=== PATIENT | female | born 1940 | race Caucasian/White ===

== ENCOUNTER 2017-05-28 13:29 | Inpatient (IN) | payer MEDICARE, MEDICAID ==
[~2017-05-28] VITALS: Ht 154.9 cm; Wt 71.7 kg
[2017-05-28 16:00] VITALS: BP 148/57
[2017-05-28] MEDS ORDERED: POLYETHYLENE GL17 GM ORAL (17:01)
[2017-05-28] MEDS ORDERED: ULORIC80 MG ORAL (17:01)
[2017-05-28] MEDS ORDERED: VASCEPA1 GM PO (17:01)
[2017-05-28] MEDS ORDERED: FUROSEMIDE40 MG ORAL (17:01)
[2017-05-28] MEDS ORDERED: CRESTOR10 M2 ORAL (17:01)
[2017-05-28] MEDS ORDERED: FOLIC ACID-VIT1 EAC1 PO (17:01)
[2017-05-28] MEDS ORDERED: PREDNISONE10 MG ORAL (17:01)
[2017-05-28] MEDS ORDERED: LEVOTHYROXINE50 MCG ORAL (17:01)
[2017-05-28] MEDS ORDERED: JANUVIA25 MG ORAL (17:01)
[2017-05-28] MEDS ORDERED: VITAMIN D250000 UNI1 ORAL (17:01)
[2017-05-28] MEDS ORDERED: BYSTOLIC2.5 MG ORAL (17:01)
[2017-05-28] MEDS ORDERED: CATAPRES0.1 MG ORAL (17:01)
[2017-05-28] MEDS ORDERED: RENA-VITE TABL0.8 M1 PO (17:01)
[2017-05-28] MEDS ORDERED: NEXIUM40 MG ORAL (17:01)
[2017-05-28] MEDS ORDERED: WARFARIN SODIUM1 MG ORAL (17:01)
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
[2017-05-28] MEDS ORDERED: Miralax 17gm pkt ORAL PRN (17:15)
[2017-05-28] MEDS ORDERED: Bystolic 2.5mg Tab ORAL PRN (17:15)
[2017-05-28] MEDS ORDERED: LORazepam Inj 2mg/ml 1ml IV PRN (17:15)
[2017-05-28] MEDS ORDERED: Zolpidem 5mg tab ORAL PRN (17:15)
[2017-05-28] MEDS ORDERED: Morphine Sulfate 2mg/ml Inj IVP PRN (17:15)
[2017-05-28] MEDS ORDERED: Mylanta II UD 30ml ORAL PRN (17:15)
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
--- NOTE | 2017-05-28 19:11 | History & Physical ---
History and Physical History & Physicial Dictated for Int Med-Dr Harris no. [id number]. THU STARR May 28, 2017 19:11
[2017-05-28 19:19] VITALS: BP 123/49
[2017-05-28] MEDS: Heparin 5000 units/ml inj SUBQ SCH (21:00)
[2017-05-28] MEDS: NovoLOG Insulin Flexpen SUBQ SCH (22:10)
[2017-05-28 23:08] VITALS: BP 116/62
[2017-05-29] VITALS (7 sets, daily range): BP systolic 128–145; BP diastolic 54–62
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
[2017-05-29] MEDS: NovoLOG Insulin Flexpen SUBQ SCH ×4 (05:56→21:00)
[2017-05-29] MEDS: Furosemide 40mg tab ORAL SCH (08:29)
[2017-05-29] MEDS: Heparin 5000 units/ml inj SUBQ SCH (08:30)
[2017-05-29 08:36] LABS: BASOPHILS % (AUTO) 0.8 % (0.0-2.0); EOSINOPHILS % (AUTO) 3.3 % (0.0-3.0); HEMATOCRIT 35.8 % (37.0-47.0); HEMOGLOBIN 11.1 G/DL (12.0-16.0); LYMPHOCYTES % (AUTO) 36.7 % (20.0-45.0); MEAN CORPUSCULAR VOLUME 97 FL (80-99); MONOCYTES % (AUTO) 5.5 % (1.0-10.0); NEUTROPHILS % (AUTO) 53.8 % (45.0-75.0); PLATELET COUNT 245 K/UL (150-450); RED BLOOD COUNT 3.71 M/UL (4.20-5.40); RED CELL DISTRIBUTION WIDTH 13.5 % (11.6-14.8); WHITE BLOOD COUNT 8.6 K/UL (4.8-10.8)
[2017-05-29 08:52] LABS: INR 2.1 (0.9-1.1)
[2017-05-29] MEDS: sitaGLIPtin 25mg tab ORAL SCH (09:01)
[2017-05-29 09:44] LABS: ALANINE AMINOTRANSFERASE 24 U/L (12-78); ALBUMIN 3.1 G/DL (3.4-5.0); ALKALINE PHOSPHATASE 60 U/L (46-116); ANION GAP 11 mmol/L (5-15); ASPARTATE AMINO TRANSFERASE 21 U/L (15-37); BILIRUBIN,TOTAL 0.4 MG/DL (0.2-1.0); BLOOD UREA NITROGEN 51 mg/dL (7-18); CALCIUM 8.7 MG/DL (8.5-10.1); CARBON DIOXIDE 27 MMOL/L (21-32); CHLORIDE 106 MMOL/L (98-107); CHOLESTEROL 212 MG/DL (< 200); CREATININE 2.4 MG/DL (0.55-1.30); HDL CHOLESTEROL 31 MG/DL (40-60); POTASSIUM 3.5 MMOL/L (3.5-5.1); SODIUM 144 MMOL/L (136-145); TRIGLYCERIDES 370 MG/DL (30-150)
[2017-05-29 10:49] LABS: CREATINE KINASE 43 U/L (26-308)
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
[2017-05-29 13:17] LABS: PHOSPHORUS 3.5 MG/DL (2.5-4.9)
[2017-05-29] MEDS ORDERED: Lidocaine HCL 2% 2ML INJ ONE (14:00)
[2017-05-29] MEDS: Cosopt Opth Soln 10 mL Btl LEFT EYE SCH (18:25)
[2017-05-29] MEDS: Tobramycin Op Soln 0.3% 5ml BOTH EYES SCH ×2 (18:26→23:53)
--- NOTE | 2017-05-29 18:41 | Pulmonology Progress Note ---
Assessment/Plan Problems: (1) Ophthalmological disorder (2) CHF (congestive heart failure) (3) HTN (hypertension) (4) ESRD (end stage renal disease) on dialysis (5) Contusion, eye, left Assessment/Plan awaiting ophtalmology symptomatic treatment hd by nephrolgoy check electrolyte Subjective ROS Limited/Unobtainable: No Allergies: Coded Allergies: LEVOFLOXACIN (Verified Allergy, Unknown, 05/28/17) Objective Last 24 Hour Vital Signs Date Time Temp Pulse Resp B/P (MAP) Pulse Ox O2 Delivery O2 Flow Rate FiO2 05/29/17 16:15 Room Air 05/29/17 16:06 97.2 64 20 128/62 98 05/29/17 16:05 97.2 64 20 128/62 96 Room Air 05/29/17 16:00 97.2 64 20 128/62 Room Air 05/29/17 12:00 97.0 63 20 133/54 Room Air 05/29/17 12:00 98.0 63 18 133/54 97 Room Air 05/29/17 12:00 Room Air 05/29/17 08:00 97.6 65 18 145/62 97 Room Air 05/29/17 03:12 96.5 62 20 136/58 96 Room Air 05/29/17 02:27 96.5 05/28/17 23:08 96.6 60 20 116/62 95 Room Air 05/28/17 19:19 97.7 65 20 123/49 95 Room Air Intake and Output 05/28/17 05/29/17 19:00 07:00 # Voids 2 # Bowel Movements 1 General Appearance: WD/WN HEENT: normocephalic, other - left orbital hematoma Respiratory/Chest: chest wall non-tender, lungs clear Cardiovascular: normal peripheral pulses, normal rate Abdomen: normal bowel sounds, no organomegaly Extremities: no cyanosis Skin: no lesions Neurologic/Psychiatric: no motor/sensory deficits Laboratory Tests 05/28/17 19:18: C-Reactive Protein, Quantitative 2.5H 05/29/17 05:30: White Blood Count 8.6, Red Blood Count 3.71L, Hemoglobin 11.1L, Hematocrit 35.8L , Mean Corpuscular Volume 97, Mean Corpuscular Hemoglobin 30.0, Mean Corpuscular Hemoglobin Concent 31.1L, Red Cell Distribution Width 13.5, Platelet Count 245, Mean Platelet Volume 7.5, Neutrophils (%) (Auto) 53.8, Lymphocytes (%) (Auto) 36.7, Monocytes (%) (Auto) 5.5, Eosinophils (%) (Auto) 3.3H, Basophils (%) (Auto) 0.8, Prothrombin Time 22.0H, Prothromb Time International Ratio 2.1H, Activated Partial Thromboplast Time 42H, Sodium Level 144, Potassium Level 3.5, Chloride Level 106, Carbon Dioxide Level 27, Anion Gap 11, Blood Urea Nitrogen 51H, Creatinine 2.4H, Estimat Glomerular Filtration Rate , Glucose Level 81, Hemoglobin A1c 6.0, Uric Acid 4.2, Calcium Level 8.7, Phosphorus Level 3.5, Magnesium Level 2.5H, Total Bilirubin 0.4, Aspartate Amino Transf (AST/SGOT) 21, Alanine Aminotransferase (ALT/SGPT) 24, Alkaline Phosphatase 60, Total Creatine Kinase 43, Troponin I 0.001, Pro-B-Type Natriuretic Peptide 416H, Total Protein 6.2L, Albumin 3.1L, Globulin 3.1, Albumin/Globulin Ratio 1.0, Triglycerides Level 370H, Cholesterol Level 212H, LDL Cholesterol 107H, HDL Cholesterol 31L, Cholesterol/HDL Ratio 6.8H, Thyroid Stimulating Hormone (TSH) 2.506 Current Medications Medications (Trade) Dose Ordered Sig/Betina Route PRN Reason Start Time Stop Time Status Last Admin Dose Admin Acetaminophen (Tylenol) 650 mg Q4H PRN ORAL fever 05/28/17 17:15 06/27/17 17:14 05/28/17 18:07 Atorvastatin Calcium (Lipitor) 20 mg BEDTIME ORAL 05/29/17 21:00 06/28/17 20:59 Clonidine HCl (Catapres Tab) 0.1 mg Q4HR PRN ORAL SBP > 160 05/28/17 17:15 06/27/17 17:14 Dextrose (Dextrose 50%) STAT PRN IV Hypoglycemia 05/28/17 17:15 06/27/17 17:14 Dorzolamide/ Timolol (Cosopt) 1 drop TWICE A DAY LEFT EYE 05/29/17 18:00 06/28/17 17:59 05/29/17 18:25 Escitalopram Oxalate (Lexapro) 10 mg DAILY ORAL 05/30/17 09:00 06/29/17 08:59 Furosemide (Lasix) 40 mg DAILY ORAL 05/29/17 09:00 06/28/17 08:59 05/29/17 08:29 Insulin Aspart (NovoLOG) BEFORE MEALS AND HS SUBQ 05/28/17 21:00 06/27/17 20:59 05/28/17 22:10 Levothyroxine Sodium (Synthroid) 50 mcg DAILY ORAL 05/29/17 09:00 06/28/17 08:59 05/29/17 08:25 Lorazepam (Ativan 2mg/ml 1ml) 0.5 mg Q4H PRN IV For Anxiety 05/28/17 17:15 06/04/17 17:14 Morphine Sulfate (Morphine Sulfate) 1 mg EVERY 4 HOURS PRN IVP For Pain 05/28/17 17:15 06/04/17 17:14 05/29/17 01:57 Nebivolol (Bystolic) 2.5 mg QHS PRN ORAL HR >100 05/28/17 17:15 06/27/17 17:14 Ondansetron HCl (Zofran) 4 mg Q6H PRN IVP Nausea & Vomiting 05/28/17 17:15 06/27/17 17:14 Pantoprazole (Protonix) 40 mg DAILY ORAL 05/29/17 09:00 06/28/17 08:59 05/29/17 08:26 Polyethylene Glycol (Miralax) 17 gm HSPRN PRN ORAL Constipation 05/28/17 17:15 06/27/17 17:14 Sitagliptin Phosphate (Januvia) 25 mg DAILY ORAL 05/29/17 09:00 06/28/17 08:59 05/29/17 09:01 Tobramycin Sulfate (Tobramycin Opth Soln) 1 drop Q6HR BOTH EYES 05/29/17 18:00 06/05/17 17:59 05/29/17 18:26 Zolpidem Tartrate (Ambien) 5 mg HSPRN PRN ORAL Insomnia 05/28/17 17:15 06/04/17 17:14 MELVA MARTINEZ May 29, 2017 18:41
[2017-05-29] MEDS ORDERED: Atorvastatin 20mg tab ORAL SCH (21:00)
--- NOTE | 2017-05-29 21:01 | Consultation ---
History of Present Illness General Date patient seen: May 29, 2017 Present Illness HPI 76-year-old white female, who presents with chief complaint of left eye injury. the pt also have hx of depressed mood, anhedonia, decrease energy, worthlessness , anxiety. no manic/psychotic sxs Allergies: Coded Allergies: LEVOFLOXACIN (Verified Allergy, Unknown, 05/28/17) Medication History Scheduled Cyanocobalamin/Fa/Pyridoxine (Folic Acid-Vit B6-Vit B12 Tab), 1 EACH PO DAILY, ( Reported) Ergocalciferol (Vitamin D2)* (Vitamin D*), 50,000 UNIT ORAL ONCE A WEEK, ( Reported) Esomeprazole Magnesium (Nexium), 40 MG ORAL DAILY, (Reported) Febuxostat (Uloric), 80 MG ORAL DAILY, (Reported) Folic Acid/Vitamin B Comp W-C (Annel-Rachele Tablet), 0.8 MG PO DAILY, (Reported) Furosemide* (Lasix*), 40 MG ORAL DAILY, (Reported) Icosapent Ethyl (Vascepa), 2 GM PO BID, (Reported) Levothyroxine Sodium* (Levothyroxine Sodium*), 50 MCG ORAL DAILY, (Reported) Prednisone* (Prednisone*), 5 MG ORAL DAILY, (Reported) Rosuvastatin Calcium* (Crestor*), 10 MG ORAL DAILY, (Reported) Sitagliptin* (Januvia*), 25 MG ORAL DAILY, (Reported) Warfarin Sod* (Warfarin Sod*), 1 MG ORAL DAILY, (Reported) Scheduled PRN Clonidine Hcl* (Catapres*), 0.1 MG ORAL Q4HR PRN for SBP > 160, (Reported) Nebivolol Hcl* (Bystolic*), 2.5 MG ORAL QHS PRN for HR >100, (Reported) Polyethylene Glycol 3350* (Polyethylene Glycol 3350*), 17 GM ORAL DAILY PRN for constipation(if no BM in 2-3) , (Reported) Patient History Limited by: medical condition History Provided By: Patient, PMD Healthcare decision maker Resuscitation status Advanced Directive on File No Past Medical/Surgical History Past Medical/Surgical History: (1) Depression (2) Diabetes mellitus, type II (3) CHF (congestive heart failure) (4) Hypercholesteremia (5) Hypothyroidism (6) HTN (hypertension) (7) Contusion, eye, left (8) ESRD (end stage renal disease) on dialysis (9) Ophthalmological disorder Review of Systems Psychiatric: Reports: prior hx, anxiety, depressed feelings, emotional problems Physical Exam General Appearance: no apparent distress, alert Neurologic: alert, oriented x 3, responsive, depressed affect Last 24 Hour Vital Signs Date Time Temp Pulse Resp B/P (MAP) Pulse Ox O2 Delivery O2 Flow Rate FiO2 05/29/17 16:15 Room Air 05/29/17 16:06 97.2 64 20 128/62 98 05/29/17 16:05 97.2 64 20 128/62 96 Room Air 05/29/17 16:00 97.2 64 20 128/62 Room Air 05/29/17 12:00 97.0 63 20 133/54 Room Air 05/29/17 12:00 98.0 63 18 133/54 97 Room Air 05/29/17 12:00 Room Air 05/29/17 08:00 97.6 65 18 145/62 97 Room Air 05/29/17 03:12 96.5 62 20 136/58 96 Room Air 05/29/17 02:27 96.5 05/28/17 23:08 96.6 60 20 116/62 95 Room Air Intake and Output 05/28/17 05/29/17 19:00 07:00 # Voids 2 # Bowel Movements 1 Laboratory Tests Test 05/29/17 05:30 White Blood Count 8.6 K/UL (4.8-10.8) Red Blood Count 3.71 M/UL (4.20-5.40) L Hemoglobin 11.1 G/DL (12.0-16.0) L Hematocrit 35.8 % (37.0-47.0) L Mean Corpuscular Volume 97 FL (80-99) Mean Corpuscular Hemoglobin 30.0 PG (27.0-31.0) Mean Corpuscular Hemoglobin Concent 31.1 G/DL (32.0-36.0) L Red Cell Distribution Width 13.5 % (11.6-14.8) Platelet Count 245 K/UL (150-450) Mean Platelet Volume 7.5 FL (6.5-10.1) Neutrophils (%) (Auto) 53.8 % (45.0-75.0) Lymphocytes (%) (Auto) 36.7 % (20.0-45.0) Monocytes (%) (Auto) 5.5 % (1.0-10.0) Eosinophils (%) (Auto) 3.3 % (0.0-3.0) H Basophils (%) (Auto) 0.8 % (0.0-2.0) Prothrombin Time 22.0 SEC (9.30-11.50) H Prothromb Time International Ratio 2.1 (0.9-1.1) H Activated Partial Thromboplast Time 42 SEC (23-33) H Sodium Level 144 MMOL/L (136-145) Potassium Level 3.5 MMOL/L (3.5-5.1) Chloride Level 106 MMOL/L (98-107) Carbon Dioxide Level 27 MMOL/L (21-32) Anion Gap 11 mmol/L (5-15) Blood Urea Nitrogen 51 mg/dL (7-18) H Creatinine 2.4 MG/DL (0.55-1.30) H Estimat Glomerular Filtration Rate mL/min (>60) Glucose Level 81 MG/DL (74-106) Hemoglobin A1c 6.0 % (4.3-6.0) Uric Acid 4.2 MG/DL (2.6-7.2) Calcium Level 8.7 MG/DL (8.5-10.1) Phosphorus Level 3.5 MG/DL (2.5-4.9) Magnesium Level 2.5 MG/DL (1.8-2.4) H Total Bilirubin 0.4 MG/DL (0.2-1.0) Aspartate Amino Transf (AST/SGOT) 21 U/L (15-37) Alanine Aminotransferase (ALT/SGPT) 24 U/L (12-78) Alkaline Phosphatase 60 U/L (46-116) Total Creatine Kinase 43 U/L (26-308) Troponin I 0.001 ng/mL (0.000-0.056) Pro-B-Type Natriuretic Peptide 416 pg/mL (0-125) H Total Protein 6.2 G/DL (6.4-8.2) L Albumin 3.1 G/DL (3.4-5.0) L Globulin 3.1 g/dL Albumin/Globulin Ratio 1.0 (1.0-2.7) Triglycerides Level 370 MG/DL (30-150) H Cholesterol Level 212 MG/DL (< 200) H LDL Cholesterol 107 mg/dL (<100) H HDL Cholesterol 31 MG/DL (40-60) L Cholesterol/HDL Ratio 6.8 (3.3-4.4) H Thyroid Stimulating Hormone (TSH) 2.506 uiU/mL (0.358-3.740) Height (Feet): 5 Height (Inches): 1.00 Weight (Pounds): 158 Medications Current Medications Medications (Trade) Dose Ordered Sig/Betina Route PRN Reason Start Time Stop Time Status Last Admin Dose Admin Acetaminophen (Tylenol) 650 mg Q4H PRN ORAL fever 05/28/17 17:15 06/27/17 17:14 05/28/17 18:07 Atorvastatin Calcium (Lipitor) 20 mg BEDTIME ORAL 05/29/17 21:00 06/28/17 20:59 Clonidine HCl (Catapres Tab) 0.1 mg Q4HR PRN ORAL SBP > 160 05/28/17 17:15 06/27/17 17:14 Dextrose (Dextrose 50%) STAT PRN IV Hypoglycemia 05/28/17 17:15 06/27/17 17:14 Dorzolamide/ Timolol (Cosopt) 1 drop TWICE A DAY LEFT EYE 05/29/17 18:00 06/28/17 17:59 05/29/17 18:25 Escitalopram Oxalate (Lexapro) 10 mg DAILY ORAL 05/30/17 09:00 06/29/17 08:59 Furosemide (Lasix) 40 mg DAILY ORAL 05/29/17 09:00 06/28/17 08:59 05/29/17 08:29 Insulin Aspart (NovoLOG) BEFORE MEALS AND HS SUBQ 05/28/17 21:00 06/27/17 20:59 05/28/17 22:10 Levothyroxine Sodium (Synthroid) 50 mcg DAILY ORAL 05/29/17 09:00 06/28/17 08:59 05/29/17 08:25 Lorazepam (Ativan 2mg/ml 1ml) 0.5 mg Q4H PRN IV For Anxiety 05/28/17 17:15 06/04/17 17:14 Morphine Sulfate (Morphine Sulfate) 1 mg EVERY 4 HOURS PRN IVP For Pain 05/28/17 17:15 1/23/18 17:14 05/29/17 01:57 Nebivolol (Bystolic) 2.5 mg QHS PRN ORAL HR >100 05/28/17 17:15 06/27/17 17:14 Ondansetron HCl (Zofran) 4 mg Q6H PRN IVP Nausea & Vomiting 05/28/17 17:15 06/27/17 17:14 Pantoprazole (Protonix) 40 mg DAILY ORAL 05/29/17 09:00 06/28/17 08:59 05/29/17 08:26 Polyethylene Glycol (Miralax) 17 gm HSPRN PRN ORAL Constipation 05/28/17 17:15 06/27/17 17:14 Sitagliptin Phosphate (Januvia) 25 mg DAILY ORAL 05/29/17 09:00 06/28/17 08:59 05/29/17 09:01 Tobramycin Sulfate (Tobramycin Opth Soln) 1 drop Q6HR BOTH EYES 05/29/17 18:00 06/05/17 17:59 05/29/17 18:26 Zolpidem Tartrate (Ambien) 5 mg HSPRN PRN ORAL Insomnia 05/28/17 17:15 06/04/17 17:14 Assessment/Plan Status: stable Assessment/Plan MDD Anxiety -lexapro 10mg po James Garnica M.D. May 29, 2017 21:01
[2017-05-30 04:06] VITALS: BP 115/45
[2017-05-30] MEDS: Tobramycin Op Soln 0.3% 5ml BOTH EYES SCH ×2 (05:54→11:35)
[2017-05-30] MEDS: NovoLOG Insulin Flexpen SUBQ SCH ×2 (05:54→11:30)
[2017-05-30 06:59] LABS: BASOPHILS % (AUTO) 0.7 % (0.0-2.0); EOSINOPHILS % (AUTO) 2.9 % (0.0-3.0); HEMATOCRIT 34.5 % (37.0-47.0); HEMOGLOBIN 11.4 G/DL (12.0-16.0); LYMPHOCYTES % (AUTO) 33.1 % (20.0-45.0); MEAN CORPUSCULAR VOLUME 96 FL (80-99); MONOCYTES % (AUTO) 6.3 % (1.0-10.0); NEUTROPHILS % (AUTO) 57.1 % (45.0-75.0); PLATELET COUNT 262 K/UL (150-450); RED BLOOD COUNT 3.61 M/UL (4.20-5.40); RED CELL DISTRIBUTION WIDTH 13.3 % (11.6-14.8); WHITE BLOOD COUNT 9.9 K/UL (4.8-10.8)
[2017-05-30 07:14] LABS: ANION GAP 6 mmol/L (5-15); BLOOD UREA NITROGEN 24 mg/dL (7-18); CALCIUM 8.7 MG/DL (8.5-10.1); CARBON DIOXIDE 35 MMOL/L (21-32); CHLORIDE 103 MMOL/L (98-107); POTASSIUM 3.2 MMOL/L (3.5-5.1); SODIUM 144 MMOL/L (136-145)
[2017-05-30 08:13] VITALS: BP 101/47
[2017-05-30] MEDS: sitaGLIPtin 25mg tab ORAL SCH (08:48)
[2017-05-30] MEDS: Furosemide 40mg tab ORAL SCH (08:49)
[2017-05-30] MEDS: Cosopt Opth Soln 10 mL Btl LEFT EYE SCH (08:49)
--- NOTE | 2017-05-30 09:27 | Diagnostic Imaging Report ---
Indication: Left eye contusion, pain and swelling Technique: The orbit was imaged in a 1.5 Fallon magnet. Sequences obtained include multiplanar T1 FLAIR, multiplanar T2 fast spin echo with fat saturation, axial T2 FLAIR, diffusion and ADC map. Comparison: None There is T2 hyperintense subcutaneous edema in the left periorbital region. The left globe is normal. There is no proptosis. There is no evidence of infiltration or abnormal signal within the orbital fat. There is certainly no evidence of a retrobulbar hemorrhage. The tendons are unremarkable and appear symmetric. Extraocular muscles are unremarkable. No obvious bone marrow edema identified within the visualized osseous structures. There is mucosal thickening within visualized paranasal sinuses. There is T2 hyperintense fluid signal in the mastoid regions bilaterally slightly worse on the left. There is no diffusion restriction. IMPRESSION: Left periorbital soft tissue contusion. No orbital trauma otherwise identified. Sinusitis
[2017-05-30 11:47] VITALS: BP 111/56
[2017-05-30] MEDS ORDERED: TIMOPTIC5 ML OP (12:28)
[2017-05-30] MEDS ORDERED: AKTOB1 DROP BOTH EYES (12:28)
[2017-05-30] MEDS ORDERED: TIMOPTIC-XE5 M1 LEFT EYE (12:29)
--- NOTE | 2017-05-30 16:44 | Pulmonology Progress Note ---
Assessment/Plan Problems: (1) Ophthalmological disorder (2) CHF (congestive heart failure) (3) HTN (hypertension) (4) ESRD (end stage renal disease) on dialysis (5) Contusion, eye, left Assessment/Plan pt is cleared to get discharged with close f/u with mop maker symptomatic treatment hd by nephrolgoy check electrolyte Subjective ROS Limited/Unobtainable: No Allergies: Coded Allergies: LEVOFLOXACIN (Verified Allergy, Unknown, 05/28/17) Objective Last 24 Hour Vital Signs Date Time Temp Pulse Resp B/P (MAP) Pulse Ox O2 Delivery O2 Flow Rate FiO2 05/30/17 11:47 97.7 68 20 111/56 96 05/30/17 08:13 97.7 82 20 101/47 92 05/30/17 04:06 92 Room Air 05/30/17 04:06 97.2 66 20 115/45 92 05/30/17 00:00 91 Room Air 05/29/17 23:59 97.2 67 20 130/60 91 Intake and Output 05/29/17 05/30/17 19:00 07:00 Output Total 1000 ml Balance -1000 ml Output Hemodialysis UF 1000 ml # Voids 2 Objective General Appearance: WD/WN Respiratory/Chest: chest wall non-tender, lungs clear Cardiovascular: normal peripheral pulses, normal rate Abdomen: normal bowel sounds, soft, non tender Genitourinary: normal external genitalia Extremities: no cyanosis Neurologic/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: 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, no motor/sensory deficits Lymphatic: no neck adenopathy Laboratory Tests 05/30/17 05:10: White Blood Count 9.9, Red Blood Count 3.61L, Hemoglobin 11.4L, Hematocrit 34.5L , Mean Corpuscular Volume 96, Mean Corpuscular Hemoglobin 31.6H, Mean Corpuscular Hemoglobin Concent 33.1, Red Cell Distribution Width 13.3, Platelet Count 262, Mean Platelet Volume 8.1, Neutrophils (%) (Auto) 57.1, Lymphocytes (% ) (Auto) 33.1, Monocytes (%) (Auto) 6.3, Eosinophils (%) (Auto) 2.9, Basophils ( %) (Auto) 0.7, Sodium Level 144, Potassium Level 3.2L, Chloride Level 103, Carbon Dioxide Level 35H, Anion Gap 6, Blood Urea Nitrogen 24H, Creatinine 2.0H , Estimat Glomerular Filtration Rate , Glucose Level 88, Calcium Level 8.7 MELVA MARTINEZ May 30, 2017 16:44
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
--- NOTE | 2017-05-31 10:52 | General Progress Note ---
Assessment/Plan Status: stable, progressing Subjective Date patient seen: May 30, 2017 Neurologic/Psychiatric: Reports: anxiety, depressed, emotional problems Allergies: Coded Allergies: LEVOFLOXACIN (Verified Allergy, Unknown, 05/28/17) Objective Last 24 Hour Vital Signs Date Time Temp Pulse Resp B/P (MAP) Pulse Ox O2 Delivery O2 Flow Rate FiO2 05/30/17 11:47 97.7 68 20 111/56 96 Intake and Output 05/30/17 05/31/17 19:00 07:00 Intake Total 240 ml Balance 240 ml Intake Oral 240 ml Height (Feet): 5 Height (Inches): 1.00 Weight (Pounds): 158 General Appearance: no apparent distress, alert Neurologic: alert, oriented x 3, responsive, depressed affect James Mosley M.D. May 31, 2017 10:52
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
== END 2017-05-30 12:45 | disposition home or self-care (01) | DRG 124 ==
LOC: 4W 16:05
PROC: 5A1D70Z Performance of Urinary Filtration, Intermittent, Less than 6 Hours Per Day (ICD-10-PCS; principal; 2017-05-29)
DX: S00.12XA Contusion of left eyelid and periocular area, initial encounter (principal); N18.6 End stage renal disease; I13.2 Hypertensive heart and chronic kidney disease with heart failure and with stage 5 chronic kidney disease, or end stage renal disease; E11.22 Type 2 diabetes mellitus with diabetic chronic kidney disease; I50.30 Unspecified diastolic (congestive) heart failure; V43.92XA Unspecified car occupant injured in collision with other type car in traffic accident, initial encounter; Z99.2 Dependence on renal dialysis; W22.10XA Striking against or struck by unspecified automobile airbag, initial encounter; Y92.410 Unspecified street and highway as the place of occurrence of the external cause; Z79.84 Long term (current) use of oral hypoglycemic drugs; E03.9 Hypothyroidism, unspecified; F32.9 Major depressive disorder, single episode, unspecified; E78.00 Pure hypercholesterolemia, unspecified; Z88.1 Allergy status to other antibiotic agents; Z79.01 Long term (current) use of anticoagulants; H57.9 Unspecified disorder of eye and adnexa
CPT/HCPCS: 36415; 70540; 80048; 80053; 80061; 82550; 82962; 83036; 83735; 83880; 84100; 84443; 84484; 84550; 85025; 85610; 85730; 86140; 87081; J1815

== ENCOUNTER 2017-06-20 11:04 | Day surgery (SDC) | payer MEDICARE, MEDICAID ==
[~2017-06-20] VITALS: Ht 152.4 cm; Wt 70.3 kg
[2017-06-20] VITALS (7 sets, daily range): BP systolic 117–134; BP diastolic 45–63
[~2017-06-20 11:04] MED LIST: AKTOB1 DROP BOTH EYES; BSS 15ml BTL ONE; BSS 500ml btl ONE; BYSTOLIC2.5 MG ORAL; Bupivacaine 0.75% 30ml vial INJ ONE; CATAPRES0.1 MG ORAL; CRESTOR10 M2 ORAL; Carbachol 0.01% Op Soln 1.5ml vial ONE; Dexamethasone 4mg/ml vial ONE; EPINEPHrine 1mg/1ml Amp ONE; FOLIC ACID-VIT1 EAC1 PO; FUROSEMIDE40 MG ORAL; Goniosol 2.5% Opth Soln - 15ml ONE; JANUVIA25 MG ORAL; Kenalog-40 1ml Vial ONE; LEVOTHYROXINE50 MCG ORAL; Lidocaine 2% MPF 5ml Vial INJ ONE; Maxitrol Opth Oint 3.5gm ONE; NEXIUM40 MG ORAL; POLYETHYLENE GL17 GM ORAL; PREDNISONE10 MG ORAL; Povidone-Iodine 5% opth solution ONE; Pred Forte 1% Opth Susp 1ml ONE; RENA-VITE TABL0.8 M1 PO; Sodium Hyaluronate 10 mg/ml 0.85ml ONE; TIMOPTIC-XE5 M1 LEFT EYE; TIMOPTIC5 ML OP; Tetracaine 0.5% Opth 4ml Soln ONE; ULORIC80 MG ORAL; VASCEPA1 GM PO; VITAMIN D250000 UNI1 ORAL; WARFARIN SODIUM1 MG ORAL
[2017-06-20] MEDS ORDERED: Proparacaine 0.5% Opth Soln 15ml LEFT EYE ONE (11:30)
[2017-06-20] MEDS ORDERED: Phenylephrine 2.5% Op 2ml Soln ONE (11:34)
[2017-06-20] MEDS ORDERED: Cyclopentolate 1% Opth Sol 2ml ONE (11:34)
[2017-06-20] MEDS ORDERED: Tropicamide 1% Opth 15ml Soln ONE (11:34)
[2017-06-20] MEDS ORDERED: Proparacaine 0.5% Opth Soln 15ml ONE (11:34)
[2017-06-20] MEDS: Cyclopentolate 1% Opth Sol 2ml LEFT EYE SCH ×3 (11:37→11:55)
[2017-06-20] MEDS: Tropicamide 1% Opth 15ml Soln LEFT EYE SCH ×3 (11:37→11:55)
[2017-06-20] MEDS: Phenylephrine 2.5% Op 2ml Soln LEFT EYE SCH ×3 (11:38→11:55)
[2017-06-20 12:02] LABS: ANION GAP 11 mmol/L (5-15); BLOOD UREA NITROGEN 45 mg/dL (7-18); CALCIUM 9.1 MG/DL (8.5-10.1); CARBON DIOXIDE 29 MMOL/L (21-32); CHLORIDE 98 MMOL/L (98-107); CREATININE 3.1 MG/DL (0.55-1.30); POTASSIUM 3.8 MMOL/L (3.5-5.1); SODIUM 138 MMOL/L (136-145)
[2017-06-20] MEDS ORDERED: Propofol 200mg/20ml IV ONE (13:00)
[2017-06-20] MEDS ORDERED: Sterile Water Irrig 1000ml IRRIG ONE (13:00)
[2017-06-20] MEDS ORDERED: Lidocaine 1% MPF 10mg/ml 5ml ONE (13:00)
[2017-06-20] MEDS ORDERED: Midazolam 2mg/2ml Inj ONE (13:00)
[2017-06-20] MEDS ORDERED: NS Irrig 1000ml ONE (13:00)
[2017-06-20] MEDS ORDERED: LR 1000ml 1,000 ML IVLG SCH (13:01)
--- NOTE | 2017-06-20 13:02 | Anethesia Preoperative Eval ---
Anesthesia Pre-op PMH/ROS General Date of Evaluation: Jun 20, 2017 Time of Evaluation: 13:01 Anesthesiologist: Quinn ASA Score: ASA 4 Mallampati Score Class I : Soft palate, uvula, fauces, pillars visible Class II: Soft palate, uvula, fauces visible Class III: Soft palate, base of uvula visible Class IV: Only hard plate visible Mallampati Classification: Class II Surgeon: Britany Diagnosis: Retinal Detachment OS Surgical Procedure: Vitrectomy OS Anesthesia History: none Family History: no anesthesia problems Allergies: Coded Allergies: LEVOFLOXACIN (Verified Allergy, Mild, RASH, 06/20/17) Medications: see eMAR Past Medical History Cardiovascular: Reports: HTN, CAD, arrhythmia - A Fib, other - CHF, HL, Stent Pulmonary: Reports: other - Pnuemonia, PE Gastrointestinal/Genitourinary: Reports: GERD, ESRD Neurologic/Psychiatric: Reports: dementia Endocrine: Reports: DM HEENT: Reports: other - Retinal Detachment OS Other: obesity - BMI 33 PSxH Narrative: Spine SX Anesthesia Pre-op Phys. Exam Physician Exam Last Vital Signs Date Time Temp Pulse Resp B/P (MAP) Pulse Ox O2 Delivery O2 Flow Rate FiO2 06/20/17 12:02 97.2 72 20 134/50 97 Room Air Constitutional: NAD Neurologic: CN 2-12 intact Cardiovascular: RRR Respiratory: CTA Gastrointestinal: S/NT/ND Airway Exam Mallampati Score: Class II MO: limited ROM: limited Teeth: intact Anesthesia Pre-op A/P Labs Chemistry Test 06/20/17 11:30 Sodium Level 138 MMOL/L (136-145) Potassium Level 3.8 MMOL/L (3.5-5.1) Chloride Level 98 MMOL/L (98-107) Carbon Dioxide Level 29 MMOL/L (21-32) Anion Gap 11 mmol/L (5-15) Blood Urea Nitrogen 45 mg/dL (7-18) H Creatinine 3.1 MG/DL (0.55-1.30) H Estimat Glomerular Filtration Rate mL/min (>60) Glucose Level 94 MG/DL (74-106) Calcium Level 9.1 MG/DL (8.5-10.1) Risk Assessment & Plan Assessment: ASA 4 Plan: GA Status Change Before Surgery: Chato Castillo MD Jun 20, 2017 13:02
[2017-06-20] MEDS ORDERED: HYDROcodone/Acetamin 7.5/325 tab ORAL PRN (13:15)
[2017-06-20] MEDS ORDERED: Atropine Inj 1mg/10ml Syr IV PRN (13:15)
[2017-06-20] MEDS ORDERED: Hydromorphone 0.5mg/0.5ml inj IVP PRN (13:15)
[2017-06-20] MEDS ORDERED: Norco 5mg/325mg tab ORAL PRN (13:15)
[2017-06-20] MEDS ORDERED: fentaNYL 100 mcg/2 mL IV PRN (13:15)
[2017-06-20] MEDS ORDERED: Labetalol 5mg/ml 20ml vial IV PRN (13:15)
[2017-06-20] MEDS ORDERED: DiphenhydrAMINE 50mg/ml Inj IVP PRN (13:15)
[2017-06-20] MEDS ORDERED: Ketorolac 30mg Inj IV PRN (13:15)
[2017-06-20] MEDS ORDERED: Ketorolac 60mg Inj IV PRN (13:15)
[2017-06-20] MEDS ORDERED: oxyCODONE HCL/Acetaminophen 5/325mg ORAL PRN (13:15)
[2017-06-20] MEDS ORDERED: LORazepam Inj 2mg/ml 1ml IV PRN (13:15)
[2017-06-20] MEDS ORDERED: Midazolam 2mg/2ml Inj IVP PRN (13:15)
--- NOTE | 2017-06-20 13:15 | Immediate Post-Op Evaluation ---
Immediate Post-Op Evalulation Immediate Post-Op Evalulation Procedure: Vitrectomy OS Date of Evaluation: Jun 20, 2017 Time of Evaluation: 15:08 IV Fluids: 250 NS Blood Products: 0 Estimated Blood Loss: 2 Urinary Output: 0 Blood Pressure Systolic: 119 Blood Pressure Diastolic: 45 Pulse Rate: 59 Respiratory Rate: 16 O2 Sat by Pulse Oximetry: 98 Temperature (Fahrenheit): 98.1 Pain Score (1-10): 1 Nausea: No Vomiting: No Complications 0 Patient Status: awake, reacts, patent, none Hydration Status: adequate Chato Zazueta MD Jun 20, 2017 13:15
--- NOTE | 2017-06-20 13:16 | 48 Hour Post Anesthesia Eval ---
Post Anesthesia Evaluation Procedure: Vitrectomy OS Date of Evaluation: Jun 20, 2017 Time of Evaluation: 17:09 Blood Pressure Systolic: 132 0: 64 Pulse Rate: 56 Respiratory Rate: 18 Temperature (Fahrenheit): 98.1 O2 Sat by Pulse Oximetry: 98 Airway: patent Nausea: No Vomiting: No Pain Intensity: 1 Hydration Status: adequate Cardiopulmonary Status: Stable Mental Status/LOC: patient returned to baseline Follow-up Care/Observations: 0 Post-Anesthesia Complications: 0 Follow-up care needed: ready to discharge Chato Zazueta MD Jun 20, 2017 13:16
--- NOTE | 2017-06-20 14:52 | Pre-Procedure Note/Attestation ---
Pre-Procedure Note/Attestation Complete Prior to Procedure Planned Procedure: left Procedure Narrative: retinal detachment following trauma OD Indications for Procedure Pre-Operative Diagnosis: RD OD Attestation I attest that I discussed the nature of the procedure; its benefits; risks and complications; and alternatives (and the risks and benefits of such alternatives ), prior to the procedure, with the patient (or the patient's legal videotape sales representative). I attest that, if there was a reasonable possibility of needing a blood transfusion, the patient (or the patient's legal videotape sales representative) was given the [facility] standardized written summary, pursuant to the Tylor Price Blood Safety Act ([place] Health and Safety Code # 1645, as amended). I attest that I re-evaluated the patient just prior to the surgery and that there has been no change in the patient's H&P, except as documented below: Colten Garg M.D. Jun 20, 2017 14:52
--- NOTE | 2017-06-20 14:54 | Brief Operative Note ---
Immediate Post Operative Note Operative Note Pre-op Diagnosis: Vitreous hemorrhage, retinal detachment OS Procedure: PPV/MP/PFO/EL/AFE/C3F8 OS Post-op Diagnosis: VH, RRD, ERM/PVR OS Surgeon: Britany Anesthesia: local Specimen: none Complications: none Condition: stable Fluids: None Estimated Blood Loss: minimal Drains: none Implant(s) used?: No Colten Garg M.D. Jun 20, 2017 14:54
--- NOTE | 2017-06-20 15:11 | Operative Note - PDOC ---
Operative Note Operative Note Pre-op Diagnosis: Vitreous hemorrhage, retinal detachment OS Procedure: PPV/MP/PFO/EL/AFE/C3F8 OS Post-op Diagnosis: VH, RRD, ERM/PVR OS Surgeon: Britany Anesthesia: local Specimen: none Complications: none Condition: stable Fluids: None Estimated Blood Loss: minimal Drains: none Implant(s) used?: No Indications for Procedure Indications for the procedure: The patient has vision loss due traumatic retinal detachment OS and presents today for surgery after review of the risks, benefits, alternative and signing informed consent into the medical chart. Description of Procedure Procedure performed: The patient was met in the pre-operative area where informed consent was reviewed. The operative eye was verified, marked and dilated. The patient was transferred to the operative suite, where cardiopulmonary monitoring was established and peribulbar anesthetic was administered without complications. The eye was prepped and draped in sterile ophthalmic fashion. Under microscope visualization the 23 gauge infusion line was placed 3.5mm inferotemporally. After visualization of the tip in the vitreous cavity, the infusion line was turned on. The superotemporal and superonasal cannulas were placed. Under ReSight visualization, peripheral and core vitrectomy was performed; as the vitreous hemorrhage was cleared, view of the retinal detachment improved. There was a large tear temporally and adherent posterior hyloid with ERM over the temporal retina. Kenalog was used the stain the hyloid and it was peeled temporally. The retina relaxed significantly. Due to the type of the IOL, PFO was necessary due to fogging upon AFE. PFO was used to fill the eye and endolaser was applied to the large temporal break. No other tears were noted previously and thus no further laser was applied due to risk of PVR. AFE was performed and the IOL fogged; healon was used to improve the view. PFO was rinsed from the eye to ensure no remaining bubbles. C3F8 gas (14%) was infused into the eye. The cannulas were removed. The eye maintained normal intraocular pressure. Subconjunctival vancomycin and dexamethasone were administered. The lid speculum was removed. The eye was cleaned of prep and drape. Atropine drop and Maxitrol ointment was applied. A pressure patch was placed. The patient was turned over to the anesthesia team and transferred in stable condition to the PACU. Colten Garg M.D. Jun 20, 2017 15:10
== END 2017-06-20 16:30 | disposition home or self-care (01) ==
LOC: SUR 11:04
DX: H33.012 Retinal detachment with single break, left eye (principal); H43.12 Vitreous hemorrhage, left eye; E11.9 Type 2 diabetes mellitus without complications; I13.2 Hypertensive heart and chronic kidney disease with heart failure and with stage 5 chronic kidney disease, or end stage renal disease; E11.22 Type 2 diabetes mellitus with diabetic chronic kidney disease; N18.6 End stage renal disease; I50.9 Heart failure, unspecified; F03.90 Unspecified dementia, unspecified severity, without behavioral disturbance, psychotic disturbance, mood disturbance, and anxiety
CPT/HCPCS: 36415; 67025; 67040; 80048; 82962; J0171; J1100; J2250; J2704; J3301; J3370; J3490; 94003; 94150